=== PATIENT | female | born 1960 | race Two or more races ===

== ENCOUNTER → 2020-08-24 | Outpatient (CLI) | payer MEDICARE ==
[~2020-08-24] MED LIST: CHOL10003 PO; FLUO10CA14 PO; FLUT9.9S NS; GABA300C PO; MULT-658 PO
== END | disposition home or self-care (01) ==
LOC: STAR 15:49
PROVIDERS: ATTEND Neurological Surgery
DX: Z01.812 Encounter for preprocedural laboratory examination (principal); Z20.828 Contact with and (suspected) exposure to other viral communicable diseases; M51.26 Other intervertebral disc displacement, lumbar region; M48.061 Spinal stenosis, lumbar region without neurogenic claudication
CPT/HCPCS: 36415; 87635; 93005